=== PATIENT | male | born 1970 | race Caucasian/White ===

== ENCOUNTER 2016-10-22 16:04 | Inpatient (IN) | payer MEDICAID ==
[2016-10-24] MEDS ORDERED: ALBUTEROL 3 ML DEYVIAL IH PRN (16:04)
[2016-10-24] MEDS ORDERED: guaiFENesin 200 MG/10 ML UDCUP PO PRN (16:13)
--- NOTE | 2016-10-24 16:50 | PDOREHIP ---
Admission [facility] - Admission - 3 Day Assessment Period Admission Date/Day 1: 10/24/16 Day 2: 10/25/16 Day 3: 10/26/16 - Active Diagnoses Comorbidities and Co-existing Conditions at Admission: 73131. None of the Above - Skin Conditions Unhealed Pressure Ulcer (1 or more/Stage 1 or >)-Admission: 0. No
[2016-10-24] MEDS: oxyCODONE IR 5 MG TAB PO PRN ×3 (17:13→23:22)
[2016-10-24] MEDS: GABAPENTIN 300 MG CAP PO SCH ×2 (17:14→20:09)
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
[2016-10-24] MEDS: ACETAMINOPHEN 500 MG TAB PO SCH (20:09)
[2016-10-24] MEDS: QUEtiapine FUMARATE 50 MG TAB PO SCH (20:09)
[2016-10-24] MEDS: morphINE SR 15 MG TAB PO SCH (20:10)
[2016-10-24] MEDS: DOXAZOSIN MESYLATE 1 MG TAB PO SCH (20:10)
[2016-10-24] MEDS: POLYETHYLENE GLYCOL 3350 17 GM PKT PO SCH (20:24)
[2016-10-24] MEDS ORDERED: morphINE SR 30 MG TAB PO SCH (21:00)
[2016-10-25] MEDS: oxyCODONE IR 5 MG TAB PO PRN ×5 (04:11→21:09)
[2016-10-25] MEDS: ACETAMINOPHEN 500 MG TAB PO SCH ×3 (05:16→21:03)
[2016-10-25] MEDS: LORazepam 1 MG TAB PO PRN ×2 (08:10→20:00)
[2016-10-25] MEDS: POLYETHYLENE GLYCOL 3350 17 GM PKT PO SCH ×2 (08:14→20:00)
[2016-10-25] MEDS: GABAPENTIN 300 MG CAP PO SCH ×3 (08:14→20:00)
[2016-10-25] MEDS: morphINE SR 15 MG TAB PO SCH ×3 (08:15→21:03)
[2016-10-25] MEDS: ENOXAPARIN 40 MG/0.4 ML SYR SC SCH (08:16)
[2016-10-25] MEDS: SENNOSIDES 1 TAB PO PRN (08:16)
[2016-10-25] MEDS: LIDOCAINE 5% 1 EA PATCH TD SCH (08:17)
[2016-10-25 08:20] LABS: % IMMATURE GRANULYOCYTES 0.9 % (0.0-1.1); ABSOLUTE IMMATURE GRANULOCYTES 0.08 10^3/uL (0.00-0.10); ADD DIFF? NO; ADD MORPH? NO; ADD SCAN? YES; FRAGMENT RBC FLAG 0 (0-99); HEMATOCRIT 35.6 % (40.0-51.0); HEMOGLOBIN 11.3 g/dL (13.7-17.5); LEFT SHIFT FLG 10 (0-99); LIPEMIA HEMOLYSIS FLAG 80 (0-99); MEAN CELL HEMOGLOBIN 29.3 pg (27.9-34.1); MEAN CELL HEMOGLOBIN CONCENTR. 31.7 g/dL (32.4-36.7); MEAN CELL VOLUME 92.2 fL (81.5-99.8); MEAN PLATELET VOLUME 8.6 fL (8.7-11.7); PLATELET CLUMPS FLAG 10 (0-99); RED BLOOD CELL COUNT 3.86 10^6/uL (4.40-6.38); RED CELL DISTRIBUTION WIDTH 13.8 % (11.5-15.2)
[2016-10-25 08:23] LABS: ATYPICAL LYMPHOCYTE FLAG 110 (0-99)
[2016-10-25 08:29] LABS: ALANINE AMINOTRANSFERASE 45 IU/L (21-72); ALBUMIN 3.6 g/dL (3.5-5.0); ALKALINE PHOSPHATASE 348 IU/L (38-126); ANION GAP 12 mEq/L (8-16); ASPARTATE AMINOTRANSFERASE 30 IU/L (17-59); BILIRUBIN,TOTAL 0.6 mg/dL (0.1-1.4); CALCIUM 9.8 mg/dL (8.5-10.4); CARBON DIOXIDE 31 mEq/l (22-31); CHLORIDE 99 mEq/L (97-110); CREATININE 0.7 mg/dL (0.7-1.3); GLOMERULAR FILTRATION RATE > 60; GLUCOSE 108 mg/dL (70-100); POTASSIUM 4.8 mEq/L (3.5-5.2); SODIUM 142 mEq/L (134-144); TOTAL PROTEIN 7.6 g/dL (6.3-8.2)
[2016-10-25 08:37] LABS: PLATELET COUNT 1063 10^3/uL (150-400)
[2016-10-25] MEDS ORDERED: VENLAFAXINE XR 75 MG CAP PO SCH (09:00)
[2016-10-25 09:43] LABS: SCAN POSITIVE
[2016-10-25 09:55] LABS: PLATELET ESTIMATE INCREASED (ADEQ)
[2016-10-25 09:56] LABS: GIANT PLATELETS PRESENT; HYPOCHROMIA 1+; POLYCHROMASIA 1+
[2016-10-25] MEDS: VENLAFAXINE XR 37.5 MG CAP PO SCH (10:21)
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
--- NOTE | 2016-10-25 12:34 | SOAPPROG ---
SOAP Progress Note Assessment/Plan: Assessment: * Debility status post multiple trauma, nonweightbearing on the left upper extremity and touchdown weightbearing on the right lower extremity. Physical and Occupational Therapy to optimize his mobility and performance of activities of daily living. * Traumatic brain injury with possible cognitive sequelae, to be assessed and treated per Speech and Language Pathology. Low stimulation environment; monitor hours of sleep. * Pain from multiple orthopedic injuries. Started sustained-release morphine at 30 mg p.o. b.i.d. on 10/24/16 and continued oxycodone 10-15 mg q.4 hours p.r.n. Increase morphine SR to 15 mg TID as he's using near the max dosing of oxycodone and continues to have pain. Continue gabapentin. Continue the lidocaine patch until he is assessed to have adequate pain control. He expressed some concern about addiction, and he was reassured that as long as the opiates are used to manage pain it is unlikely that he will become addicted , though his prior history of substance abuse increases his risk. * Status post flail chest, pneumonia, and pulmonary edema. Incentive spirometry 10 breaths every hour. * Status post splenectomy. Per hospital discharge summary, he received appropriate vaccinations. * Thrombocytosis: likely due to splenectomy. * Left foot pain, both somatic and neuropathic component. Continue gabapentin as ordered. XR w/out fracture. * History of anxiety. Continue venlafaxine and quetiapine as ordered out of the hospital. * Anemia, post traumatic and postsurgical. Improving on CBC 10/25/16. * Constipation on opiates. Responding to bowel program. * He is a high risk for deep venous thrombosis. Continue enoxaparin as ordered out of the hospital. * Questionable history of urinary retention. He had some vagueness in terms of describing this. Will order bladder scans on a p.r.n. basis. Continue doxazosin. If he has urinary retention, it may be due to opiates plus methocarbamol and the symptom may resolve when opiates can be tapered. 10/25/16 13:45 Subjective: Slept OK though had vivid dreams and some confusion re dreams vs. wakeful events overnight. Hurts to breathe deep. No cough/dyspnea, f/c. Objective: Vital Signs Temp Pulse Resp BP Pulse Ox 36.6 C 97 18 104/73 94 10/25/16 06:17 10/25/16 06:17 10/25/16 06:17 10/25/16 06:17 10/25/16 06:17 Laboratory Results 10/25/16 05:15 10/25/16 05:15 10/24/16 10/25/16 10/26/16 05:59 05:59 05:59 Intake Total 550 Output Total 1425 Balance -875 Physical Exam - Physical Exam General Appearance: WD/WN, alert, no apparent distress Respiratory: normal breath sounds, decreased breath sounds, No crackles, No rhonchi, No wheezing Cardiac/Chest: regular rate, rhythm, No edema Skin: normal color, warm/dry Neuro/Psych: no motor/sensory deficits, alert, normal mood/affect, oriented x 3 ICD10 Worksheet Patient Problems: Problems Problem Status Diagnosed Multiple trauma Acute TBI (traumatic brain injury) Acute
[2016-10-25] MEDS: QUEtiapine FUMARATE 50 MG TAB PO SCH (20:00)
[2016-10-25] MEDS: DOXAZOSIN MESYLATE 1 MG TAB PO SCH (20:02)
[2016-10-26] MEDS: oxyCODONE IR 5 MG TAB PO PRN ×5 (02:27→23:34)
[2016-10-26] MEDS: ACETAMINOPHEN 500 MG TAB PO SCH ×3 (05:01→21:20)
[2016-10-26] MEDS: LIDOCAINE 5% 1 EA PATCH TD SCH (08:53)
[2016-10-26] MEDS: morphINE SR 15 MG TAB PO SCH ×3 (08:55→21:20)
[2016-10-26] MEDS: VENLAFAXINE XR 37.5 MG CAP PO SCH (08:56)
[2016-10-26] MEDS: LORazepam 1 MG TAB PO PRN ×2 (09:01→21:30)
[2016-10-26] MEDS: POLYETHYLENE GLYCOL 3350 17 GM PKT PO SCH ×2 (09:02→21:21)
[2016-10-26] MEDS: ENOXAPARIN 40 MG/0.4 ML SYR SC SCH (09:03)
[2016-10-26] MEDS: GABAPENTIN 300 MG CAP PO SCH ×3 (09:06→21:20)
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
[2016-10-26] MEDS: PANTOPRAZOLE SODIUM 40 MG TAB PO SCH (11:28)
[2016-10-26] MEDS ORDERED: IBUPROFEN 600 MG TAB PO SCH (12:00)
[2016-10-26] MEDS: IBUPROFEN 200 MG TAB PO SCH ×2 (16:39→21:21)
[2016-10-26] MEDS: QUEtiapine FUMARATE 50 MG TAB PO SCH (21:20)
[2016-10-26] MEDS: DOXAZOSIN MESYLATE 1 MG TAB PO SCH (21:21)
[2016-10-27] MEDS: oxyCODONE IR 5 MG TAB PO PRN ×3 (05:43→23:48)
[2016-10-27] MEDS: IBUPROFEN 200 MG TAB PO SCH ×5 (05:44→20:59)
[2016-10-27] MEDS: ACETAMINOPHEN 500 MG TAB PO SCH ×3 (05:45→21:03)
[2016-10-27] MEDS: ENOXAPARIN 40 MG/0.4 ML SYR SC SCH (08:06)
[2016-10-27] MEDS: GABAPENTIN 300 MG CAP PO SCH ×3 (08:07→21:14)
[2016-10-27] MEDS: morphINE SR 15 MG TAB PO SCH ×3 (08:08→21:03)
[2016-10-27] MEDS: LIDOCAINE 5% 1 EA PATCH TD SCH (08:08)
[2016-10-27] MEDS: POLYETHYLENE GLYCOL 3350 17 GM PKT PO SCH ×2 (08:09→21:14)
[2016-10-27] MEDS: VENLAFAXINE XR 37.5 MG CAP PO SCH (08:09)
[2016-10-27] MEDS: PANTOPRAZOLE SODIUM 40 MG TAB PO SCH (08:09)
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
[2016-10-27] MEDS: QUEtiapine FUMARATE 50 MG TAB PO SCH (20:58)
[2016-10-27] MEDS: LORazepam 1 MG TAB PO PRN (21:14)
[2016-10-27] MEDS: DOXAZOSIN MESYLATE 1 MG TAB PO SCH (21:22)
[2016-10-28] MEDS: ACETAMINOPHEN 500 MG TAB PO SCH ×3 (04:58→21:59)
[2016-10-28] MEDS: oxyCODONE IR 5 MG TAB PO PRN ×3 (05:05→17:20)
[2016-10-28] MEDS: morphINE SR 15 MG TAB PO SCH ×3 (05:09→21:59)
[2016-10-28] MEDS: LORazepam 1 MG TAB PO PRN (06:41)
[2016-10-28] MEDS: GABAPENTIN 300 MG CAP PO SCH ×3 (08:04→20:14)
[2016-10-28] MEDS: ENOXAPARIN 40 MG/0.4 ML SYR SC SCH (08:04)
[2016-10-28] MEDS: LIDOCAINE 5% 1 EA PATCH TD SCH (08:05)
[2016-10-28] MEDS: VENLAFAXINE XR 37.5 MG CAP PO SCH (08:07)
[2016-10-28] MEDS: POLYETHYLENE GLYCOL 3350 17 GM PKT PO SCH ×2 (08:07→20:14)
[2016-10-28] MEDS: SENNOSIDES 1 TAB PO PRN (08:07)
[2016-10-28] MEDS: PANTOPRAZOLE SODIUM 40 MG TAB PO SCH (08:07)
--- NOTE | 2016-10-28 12:00 | SOAPPROG ---
SOAP Progress Note Assessment/Plan: Assessment: * Debility status post multiple trauma, nonweightbearing on the left upper extremity and touchdown weightbearing on the right lower extremity. Initial FIM 77 on 10/26/16. Not complying with TTWB restrictions adequately to work on ambulation. Continue Physical and Occupational Therapy to optimize his mobility and performance of activities of daily living. TTWB clarified with Dr. Leija, Orthopedics: may not use RLE to self-propel wheelchair. 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 Decreased attn. exec fn, working memory, organization. Continue Speech and Language Pathology. Low stimulation environment; monitor hours of sleep. * Pain from multiple orthopedic injuries. Started sustained-release morphine at 30 mg p.o. b.i.d. on 10/24/16 and continued oxycodone 10-15 mg q.4 hours p.r.n. Increase morphine SR to 30 mg Q 8 hr 10/25/16 as he's using near the max dosing of oxycodone and continues to have pain. Add ibuprofen 600 mg Q 6 hr starting 10/26/16, and pantoprazole for GI protection. Continue gabapentin. Continue the lidocaine patch until he is assessed to have adequate pain control. He expressed some concern about addiction, and he was reassured that as long as the opiates are used to manage pain it is unlikely that he will become addicted, though his prior history of substance abuse increases his risk. Has reduced use of oxyIR from 50 - 60 mg/day to 35 mg/day on 10/27/16. * Status post flail chest, pneumonia, and pulmonary edema. Incentive spirometry 10 breaths every hour. * Status post splenectomy. Per hospital discharge summary, he received appropriate vaccinations. * Thrombocytosis: likely due to splenectomy. * Left foot pain, both somatic and neuropathic component. Continue gabapentin as ordered. XR w/out fracture. * Pedal edema. Due to ibuprofen and gabapentin? No renal or hepatic insufficiency on labs 10/25/16. No S/Sx DVT or PE. Continue to monitor. * History of anxiety. Continue venlafaxine and quetiapine as ordered out of the hospital. * H/O substance abuse: caution re opiate dosing. * Anemia, post traumatic and postsurgical. Improving on CBC 10/25/16. * Constipation on opiates. Responding to bowel program. * He is a high risk for deep venous thrombosis. Continue enoxaparin as ordered out of the hospital. * Questionable history of urinary retention. He had some vagueness in terms of describing this. Will order bladder scans on a p.r.n. basis. Continue doxazosin. If he has urinary retention, it may be due to opiates plus methocarbamol and the symptom may resolve when opiates can be tapered. Progress is limited by weightbearing; may need to discharge at wheelchair level until weightbearing can be advanced. If SNF destination, tentative discharge date of 11/02/16. If home, 11/09/16; would need to be able to negotiate stairs. 10/28/16 12:00 Subjective: Reports a 15 minute episode of R triceps pain, which has resolved. Says he awoke at night with pain and asks about med scheduling. C/O dry flakey skin on hands and feet. Notices puffiness to feet L > R. Objective: Vital Signs Temp Pulse Resp BP Pulse Ox 36.8 C 90 18 109/77 92 10/28/16 07:02 10/28/16 07:02 10/28/16 07:02 10/28/16 07:02 10/28/16 07:02 Laboratory Results 10/25/16 05:15 10/25/16 05:15 10/27/16 10/28/16 10/29/16 05:59 05:59 05:59 Intake Total 3620 3000 780 Output Total 1900 Balance 3620 1100 780 Physical Exam - Physical Exam General Appearance: WD/WN, alert, no apparent distress Respiratory: No respiratory distress, No accessory muscle use Skin: normal color, warm/dry, other (dry flakey skin on backs of hands and on feet.) Extremities: pedal edema (1+ on L dorsum of foot) Neuro/Psych: no motor/sensory deficits, alert, normal mood/affect, oriented x 3 ICD10 Worksheet Patient Problems: Problems Problem Status Diagnosed Multiple trauma Acute TBI (traumatic brain injury) Acute
[2016-10-28] MEDS: IBUPROFEN 200 MG TAB PO SCH ×3 (12:29→20:11)
[2016-10-28] MEDS: AQUAPHOR OINTMENT 3.5 OZ JAR TP SCH ×2 (14:07→20:21)
[2016-10-28] MEDS: DOXAZOSIN MESYLATE 1 MG TAB PO SCH (20:14)
[2016-10-28] MEDS: QUEtiapine FUMARATE 50 MG TAB PO SCH (20:14)
[2016-10-29] MEDS: IBUPROFEN 200 MG TAB PO SCH ×4 (06:10→20:11)
[2016-10-29] MEDS: ACETAMINOPHEN 500 MG TAB PO SCH ×3 (06:10→21:05)
[2016-10-29] MEDS: morphINE SR 15 MG TAB PO SCH ×3 (06:11→21:05)
[2016-10-29] MEDS: POLYETHYLENE GLYCOL 3350 17 GM PKT PO SCH ×2 (07:51→20:12)
[2016-10-29] MEDS: oxyCODONE IR 5 MG TAB PO PRN ×3 (07:52→17:50)
[2016-10-29] MEDS: GABAPENTIN 300 MG CAP PO SCH ×3 (07:53→20:11)
[2016-10-29] MEDS: PANTOPRAZOLE SODIUM 40 MG TAB PO SCH (07:54)
[2016-10-29] MEDS: VENLAFAXINE XR 37.5 MG CAP PO SCH (07:54)
[2016-10-29] MEDS: ENOXAPARIN 40 MG/0.4 ML SYR SC SCH (07:54)
[2016-10-29] MEDS: LIDOCAINE 5% 1 EA PATCH TD SCH (07:56)
--- NOTE | 2016-10-29 10:14 | SOAPPROG ---
SOAP Progress Note Assessment/Plan: Assessment: * Debility status post multiple trauma, nonweightbearing on the left upper extremity and touchdown weightbearing on the right lower extremity. Initial FIM 77 on 10/26/16. Not complying with TTWB restrictions adequately to work on ambulation. Continue Physical and Occupational Therapy to optimize his mobility and performance of activities of daily living. TTWB clarified with Dr. Leija, Orthopedics: may not use RLE to self-propel wheelchair. 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 Decreased attn. exec fn, working memory, organization. Continue Speech and Language Pathology. Low stimulation environment; monitor hours of sleep. * Pain from multiple orthopedic injuries. Started sustained-release morphine at 30 mg p.o. b.i.d. on 10/24/16 and continued oxycodone 10-15 mg q.4 hours p.r.n. Increase morphine SR to 30 mg Q 8 hr 10/25/16. Adedd ibuprofen 600 mg Q 6 hr starting 10/26/16, and pantoprazole for GI protection. Continue gabapentin. Continue the lidocaine patch until he is assessed to have adequate pain control. He expressed some concern about addiction, and he was reassured that as long as the opiates are used to manage pain it is unlikely that he will become addicted, though his prior history of substance abuse increases his risk. Has reduced use of oxyIR from 50 - 60 mg/day to 35 mg/day on 10/27/16 & . * Status post flail chest, pneumonia, and pulmonary edema. Incentive spirometry 10 breaths every hour. * Status post splenectomy. Per hospital discharge summary, he received appropriate vaccinations. * Thrombocytosis: likely due to splenectomy. * Left foot pain, both somatic and neuropathic component. Continue gabapentin as ordered. XR w/out fracture. * Pedal edema. Due to ibuprofen and gabapentin? No renal or hepatic insufficiency on labs 10/25/16. No S/Sx DVT or PE. Continue to monitor. * History of anxiety. Continue venlafaxine and quetiapine as ordered out of the hospital. * H/O substance abuse: caution re opiate dosing. * Anemia, post traumatic and postsurgical. Improving on CBC 10/25/16. * Constipation on opiates. Responding to bowel program. * He is a high risk for deep venous thrombosis. Continue enoxaparin as ordered out of the hospital. * Questionable history of urinary retention. He had some vagueness in terms of describing this. Will order bladder scans on a p.r.n. basis. D/C doxazosin . If he has urinary retention, it may be due to opiates plus methocarbamol and the symptom may resolve when opiates can be tapered. Progress is limited by weightbearing; may need to discharge at wheelchair level until weightbearing can be advanced. If SNF destination, tentative discharge date of 11/02/16. If home, 11/09/16; would need to be able to negotiate stairs. 10/29/16 10:15 Subjective: Asks re reason he's on doxazosin. Also wants to know about age-appropriate health screening. Slept through the night; awoke with urinary incontinence and called nurse for assistance to commode. Objective: Vital Signs Temp Pulse Resp BP Pulse Ox 36.6 C 83 16 104/71 91 L 10/29/16 07:57 10/29/16 07:57 10/29/16 07:57 10/29/16 07:57 10/29/16 07:57 Laboratory Results 10/25/16 05:15 10/25/16 05:15 10/28/16 10/29/16 10/30/16 05:59 05:59 05:59 Intake Total 3000 1580 Output Total 1900 Balance 1100 1580 Physical Exam - Physical Exam General Appearance: WD/WN, alert, no apparent distress Respiratory: No respiratory distress, No accessory muscle use Skin: normal color, warm/dry Extremities: pedal edema (trace - 1+ B dorsal feet) Neuro/Psych: no motor/sensory deficits, alert, normal mood/affect, oriented x 3 ICD10 Worksheet Patient Problems: Problems Problem Status Diagnosed Multiple trauma Acute TBI (traumatic brain injury) Acute
[2016-10-29] MEDS: AQUAPHOR OINTMENT 3.5 OZ JAR TP SCH ×2 (13:13→21:20)
[2016-10-29] MEDS: QUEtiapine FUMARATE 50 MG TAB PO SCH (20:11)
[2016-10-29] MEDS: LORazepam 1 MG TAB PO PRN (21:18)
[2016-10-30] MEDS: IBUPROFEN 200 MG TAB PO SCH ×4 (05:28→20:42)
[2016-10-30] MEDS: morphINE SR 15 MG TAB PO SCH ×3 (05:28→21:24)
[2016-10-30] MEDS: ACETAMINOPHEN 500 MG TAB PO SCH ×3 (05:29→21:24)
[2016-10-30] MEDS: ENOXAPARIN 40 MG/0.4 ML SYR SC SCH (08:34)
[2016-10-30] MEDS: oxyCODONE IR 5 MG TAB PO PRN ×3 (08:34→21:25)
[2016-10-30] MEDS: GABAPENTIN 300 MG CAP PO SCH ×3 (08:35→20:41)
[2016-10-30] MEDS: PANTOPRAZOLE SODIUM 40 MG TAB PO SCH (08:35)
[2016-10-30] MEDS: POLYETHYLENE GLYCOL 3350 17 GM PKT PO SCH ×2 (08:35→20:41)
[2016-10-30] MEDS: LIDOCAINE 5% 1 EA PATCH TD SCH (08:35)
[2016-10-30] MEDS: VENLAFAXINE XR 37.5 MG CAP PO SCH (08:35)
[2016-10-30] MEDS: AQUAPHOR OINTMENT 3.5 OZ JAR TP SCH ×2 (08:36→21:25)
--- NOTE | 2016-10-30 14:13 | SOAPPROG ---
SOAP Progress Note Assessment/Plan: Assessment: * Debility status post multiple trauma, nonweightbearing on the left upper extremity and touchdown weightbearing on the right lower extremity. Initial FIM 77 on 10/26/16. Not complying with TTWB restrictions adequately to work on ambulation. Continue Physical and Occupational Therapy to optimize his mobility and performance of activities of daily living. TTWB clarified with Dr. Leija, Orthopedics: may not use RLE to self-propel wheelchair. 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 Decreased attn. exec fn, working memory, organization. Continue Speech and Language Pathology. Low stimulation environment; monitor hours of sleep. * Pain from multiple orthopedic injuries. Started sustained-release morphine at 30 mg p.o. b.i.d. on 10/24/16 and continued oxycodone 10-15 mg q.4 hours p.r.n. Increase morphine SR to 30 mg Q 8 hr 10/25/16. Adedd ibuprofen 600 mg Q 6 hr starting 10/26/16, and pantoprazole for GI protection. Continue gabapentin. Continue the lidocaine patch until he is assessed to have adequate pain control. He expressed some concern about addiction, and he was reassured that as long as the opiates are used to manage pain it is unlikely that he will become addicted, though his prior history of substance abuse increases his risk. Has reduced use of oxyIR from 50 - 60 mg/day to 35 mg/day on 10/27/16 & . * Status post flail chest, pneumonia, and pulmonary edema. Incentive spirometry 10 breaths every hour. * Status post splenectomy. Per hospital discharge summary, he received appropriate vaccinations. * Thrombocytosis: likely due to splenectomy. * Left foot pain, both somatic and neuropathic component. Continue gabapentin as ordered. XR w/out fracture. * Pedal edema. Due to ibuprofen and gabapentin? No renal or hepatic insufficiency on labs 10/25/16. No S/Sx DVT or PE. Continue to monitor. * History of anxiety. Continue venlafaxine and quetiapine as ordered out of the hospital. * H/O substance abuse: caution re opiate dosing. * Anemia, post traumatic and postsurgical. Improving on CBC 10/25/16. * Constipation on opiates. Responding to bowel program. * He is a high risk for deep venous thrombosis. Continue enoxaparin as ordered out of the hospital. * Questionable history of urinary retention. He had some vagueness in terms of describing this. Will order bladder scans on a p.r.n. basis. D/C doxazosin . If he has urinary retention, it may be due to opiates plus methocarbamol and the symptom may resolve when opiates can be tapered. Progress is limited by weightbearing; may need to discharge at wheelchair level until weightbearing can be advanced. If SNF destination, tentative discharge date of 11/02/16. If home, 11/09/16; would need to be able to negotiate stairs. 10/30/16 14:11 Subjective: Episode of urinary incontinence again overnight. O/W slept well. Pain now limited to L shoulder and rib cage. Disnihibited behavior noted by nirse. Objective: Vital Signs Temp Pulse Resp BP Pulse Ox 36.4 C 79 16 90/55 L 99 10/30/16 08:00 10/30/16 08:00 10/30/16 08:00 10/30/16 08:00 10/30/16 08:00 Laboratory Results 10/25/16 05:15 10/25/16 05:15 10/29/16 10/30/16 10/31/16 05:59 05:59 05:59 Intake Total 1580 1750 600 Balance 1580 1750 600 Physical Exam - Physical Exam General Appearance: WD/WN, alert, no apparent distress Respiratory: normal breath sounds, wheezing, No crackles, No rhonchi Cardiac/Chest: regular rate, rhythm, edema (trace - 1+ B feet) Skin: normal color, warm/dry Neuro/Psych: no motor/sensory deficits, alert, normal mood/affect, oriented x 3 , other (Perseverative) ICD10 Worksheet Patient Problems: Problems Problem Status Diagnosed Multiple trauma Acute TBI (traumatic brain injury) Acute
[2016-10-30] MEDS: QUEtiapine FUMARATE 50 MG TAB PO SCH (20:43)
[2016-10-31] MEDS: oxyCODONE IR 5 MG TAB PO PRN ×6 (03:15→21:30)
[2016-10-31] MEDS: IBUPROFEN 200 MG TAB PO SCH ×4 (05:57→20:01)
[2016-10-31] MEDS: ACETAMINOPHEN 500 MG TAB PO SCH ×3 (05:57→21:30)
[2016-10-31] MEDS: morphINE SR 15 MG TAB PO SCH ×3 (05:57→21:30)
[2016-10-31] MEDS: ENOXAPARIN 40 MG/0.4 ML SYR SC SCH (07:28)
[2016-10-31] MEDS: AQUAPHOR OINTMENT 3.5 OZ JAR TP SCH ×2 (07:29→20:01)
[2016-10-31] MEDS: PANTOPRAZOLE SODIUM 40 MG TAB PO SCH (07:29)
[2016-10-31] MEDS: LIDOCAINE 5% 1 EA PATCH TD SCH (07:29)
[2016-10-31] MEDS: VENLAFAXINE XR 37.5 MG CAP PO SCH (07:29)
[2016-10-31] MEDS: POLYETHYLENE GLYCOL 3350 17 GM PKT PO SCH ×2 (07:29→20:02)
[2016-10-31] MEDS: GABAPENTIN 300 MG CAP PO SCH (07:29)
--- NOTE | 2016-10-31 12:33 | SOAPPROG ---
SOAP Progress Note Assessment/Plan: Assessment: * Debility status post multiple trauma, nonweightbearing on the left upper extremity and touchdown weightbearing on the right lower extremity. Initial FIM 84 on 10/26/16; increase to 91 as of 10/31/16. Not complying with TTWB restrictions adequately to work on ambulation. Continue Physical and Occupational Therapy to optimize his mobility and performance of activities of daily living. TTWB clarified with Dr. Leija, Orthopedics: may not use RLE to self-propel wheelchair. 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 Decreased attn. exec fn, working memory, organization. Continue Speech and Language Pathology. Low stimulation environment; monitor hours of sleep. * Pain from multiple orthopedic injuries. Started sustained-release morphine at 30 mg p.o. b.i.d. on 10/24/16 and continued oxycodone 10-15 mg q.4 hours p.r.n. Increase morphine SR to 30 mg Q 8 hr 10/25/16. Added ibuprofen 600 mg Q 6 hr starting 10/26/16, and pantoprazole for GI protection. Taper gabapentin starting 10/31/16 as neuropathic symptoms of tingling in toes are not bothersome. Continue the lidocaine patch until he is assessed to have adequate pain control. He expressed some concern about addiction, and he was reassured that as long as the opiates are used to manage pain it is unlikely that he will become addicted, though his prior history of substance abuse increases his risk. Has reduced use of oxyIR from 50 - 60 mg/day to 35 mg/day on 10/27/16 & ; 40 mg on 10/30/16. * Status post flail chest, pneumonia, and pulmonary edema. Incentive spirometry 10 breaths every hour. * Status post splenectomy. Per hospital discharge summary, he received appropriate vaccinations. * Thrombocytosis: likely due to splenectomy. * Left foot pain, both somatic and neuropathic component. Continue gabapentin as ordered. XR w/out fracture. * Pedal edema. Due to ibuprofen and gabapentin? No renal or hepatic insufficiency on labs 10/25/16. No S/Sx DVT or PE. Taper gabapentin as above. Continue to monitor. * History of anxiety. Continue venlafaxine and quetiapine as ordered out of the hospital. * H/O substance abuse: caution re opiate dosing. * Anemia, post traumatic and postsurgical. Improving on CBC 10/25/16. * Constipation on opiates. Responding to bowel program. * He is a high risk for deep venous thrombosis. Continue enoxaparin as ordered out of the hospital. * Questionable history of urinary retention. He had some vagueness in terms of describing this. Will order bladder scans on a p.r.n. basis. D/C doxazosin . If he has urinary retention, it may be due to opiates plus methocarbamol and the symptom may resolve when opiates can be tapered. Attended staffing, 15 min. D/w case mgmt, nursing, PT, OT, [employer]ATOR. Plan for SNF discharge 11/02/16; appropriate until weightbearing can be advanced. 10/31/16 12:28 Subjective: C/O still in pain. Asks questions re weightbearing status and how long restricted. Denies urinary incontinence overnight. Was up twice and slept less than a full night. Objective: Vital Signs Temp Pulse Resp BP Pulse Ox 36.5 C 80 16 99/67 L 92 10/31/16 05:37 10/31/16 05:37 10/31/16 05:37 10/31/16 05:37 10/31/16 05:37 Laboratory Results 10/25/16 05:15 10/25/16 05:15 10/30/16 10/31/16 11/01/16 05:59 05:59 05:59 Intake Total 1750 1320 236 Output Total 600 Balance 1750 720 236 - Time Spent With Patient Time Spent With Patient: Greater than 35 minutes floor time today, including more than 50% of time in coordination of care during staffing, and counseling patient. Physical Exam - Physical Exam General Appearance: WD/WN, alert, no apparent distress Respiratory: normal breath sounds, No crackles, No rhonchi, No wheezing Skin: normal color, warm/dry Neuro/Psych: no motor/sensory deficits, alert, normal mood/affect, oriented x 3 , other (Repetitive and perseverative.) ICD10 Worksheet Patient Problems: Problems Problem Status Diagnosed Multiple trauma Acute TBI (traumatic brain injury) Acute
[2016-10-31] MEDS ORDERED: GABAPENTIN 300 MG CAP PO SCH ×2 (12:34)
[2016-10-31] MEDS: GABAPENTIN 100 MG CAP PO SCH (18:21)
[2016-10-31] MEDS: QUEtiapine FUMARATE 50 MG TAB PO SCH (20:01)
[2016-11-01] MEDS: oxyCODONE IR 5 MG TAB PO PRN ×5 (02:33→17:48)
[2016-11-01] MEDS: ACETAMINOPHEN 500 MG TAB PO SCH ×3 (05:45→21:41)
[2016-11-01] MEDS: morphINE SR 15 MG TAB PO SCH ×3 (05:45→21:41)
[2016-11-01] MEDS: IBUPROFEN 200 MG TAB PO SCH (05:45)
[2016-11-01] MEDS: LIDOCAINE 5% 1 EA PATCH TD SCH (08:52)
[2016-11-01] MEDS: GABAPENTIN 100 MG CAP PO SCH (08:55)
[2016-11-01] MEDS: AQUAPHOR OINTMENT 3.5 OZ JAR TP SCH ×2 (08:56→22:18)
[2016-11-01] MEDS: ENOXAPARIN 40 MG/0.4 ML SYR SC SCH (08:56)
[2016-11-01] MEDS: VENLAFAXINE XR 37.5 MG CAP PO SCH (08:57)
[2016-11-01] MEDS: PANTOPRAZOLE SODIUM 40 MG TAB PO SCH (08:57)
[2016-11-01] MEDS: POLYETHYLENE GLYCOL 3350 17 GM PKT PO SCH ×2 (08:57→20:04)
[2016-11-01] MEDS: SENNOSIDES 1 TAB PO PRN (08:57)
--- NOTE | 2016-11-01 11:26 | SOAPPROG ---
SOAP Progress Note Assessment/Plan: Assessment: * Debility status post multiple trauma, nonweightbearing on the left upper extremity and touchdown weightbearing on the right lower extremity. Initial FIM 84 on 10/26/16; increase to 91 as of 10/31/16. Not complying with TTWB restrictions adequately to work on ambulation. Continue Physical and Occupational Therapy to optimize his mobility and performance of activities of daily living. TTWB clarified with Dr. Leija, Orthopedics: may not use RLE to self-propel wheelchair. 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 Decreased attn. exec fn, working memory, organization. Continue Speech and Language Pathology. Low stimulation environment; monitor hours of sleep. * Pain from multiple orthopedic injuries. Started sustained-release morphine at 30 mg p.o. b.i.d. on 10/24/16 and continued oxycodone 10-15 mg q.4 hours p.r.n. Increased morphine SR to 30 mg Q 8 hr 10/25/16. Added ibuprofen 600 mg Q 6 hr starting 10/26/16, and pantoprazole for GI protection; change to celecoxib 11/01/16 for longer duration of action; will also d/c pantoprazole. Taper gabapentin starting 10/31/16 as neuropathic symptoms of tingling in toes are not bothersome; D/C 11/01/16. Continue the lidocaine patch until he is assessed to have adequate pain control. He expressed some concern about addiction, and he was reassured that as long as the opiates are used to manage pain it is unlikely that he will become addicted, though his prior history of substance abuse increases his risk. * Status post flail chest, pneumonia, and pulmonary edema. Incentive spirometry 10 breaths every hour. * Status post splenectomy. Per hospital discharge summary, he received appropriate vaccinations. * Thrombocytosis: likely due to splenectomy. * Left foot pain, XR w/out fracture, seems resolved. * Pedal edema. Due to ibuprofen and gabapentin? No renal or hepatic insufficiency on labs 10/25/16. No S/Sx DVT or PE. Taper gabapentin as above and improving; d/c gabapentin 11/01/16. Continue to monitor. * History of anxiety. Continue venlafaxine and quetiapine as ordered out of the hospital. Psychiatry consult to clarify diagnosis (historically diagnosed schizoaffective and possibly bipolar; polysubstance abuse overlay). * H/O substance abuse: caution re opiate dosing. * Anemia, post traumatic and postsurgical. Improving on CBC 10/25/16. * Constipation on opiates. Responding to bowel program. * He is a high risk for deep venous thrombosis. Continue enoxaparin as ordered out of the hospital. * Questionable history of urinary retention. He had some vagueness in terms of describing this. Will order bladder scans on a p.r.n. basis. D/C doxazosin . If he has urinary retention, it may be due to opiates plus methocarbamol and the symptom may resolve when opiates can be tapered. Possible SNF discharge 11/02/16; appropriate until weightbearing can be advanced; may be delayed for [facility] and re availability of Medicaid bed. 11/01/16 11:20 Subjective: Reports that he awoke with pain during the night, primarily L ribs. Notes less swelling in feet. O/W w/out complaint; no f/c, cough/dyspnea. Objective: Vital Signs Temp Pulse Resp BP Pulse Ox 36.6 C 74 18 109/74 94 11/01/16 06:14 11/01/16 06:14 11/01/16 06:14 11/01/16 06:14 11/01/16 06:14 Laboratory Results 10/25/16 05:15 10/25/16 05:15 10/31/16 11/01/16 11/02/16 05:59 05:59 05:59 Intake Total 1320 686 Output Total 600 Balance 720 686 Physical Exam - Physical Exam General Appearance: WD/WN, alert, no apparent distress Respiratory: No respiratory distress, No accessory muscle use Skin: normal color, warm/dry Neuro/Psych: no motor/sensory deficits, alert, normal mood/affect, oriented x 3 ICD10 Worksheet Patient Problems: Problems Problem Status Diagnosed Multiple trauma Acute TBI (traumatic brain injury) Acute
[2016-11-01] MEDS: LORazepam 1 MG TAB PO PRN (18:03)
[2016-11-01] MEDS: QUEtiapine FUMARATE 50 MG TAB PO SCH (20:04)
[2016-11-02] MEDS: oxyCODONE IR 5 MG TAB PO PRN ×4 (03:54→18:29)
[2016-11-02] MEDS: ACETAMINOPHEN 500 MG TAB PO SCH ×3 (06:19→20:25)
[2016-11-02] MEDS: morphINE SR 15 MG TAB PO SCH ×3 (06:19→20:26)
[2016-11-02] MEDS: LIDOCAINE 5% 1 EA PATCH TD SCH (08:07)
[2016-11-02] MEDS: VENLAFAXINE XR 37.5 MG CAP PO SCH (08:07)
[2016-11-02] MEDS: POLYETHYLENE GLYCOL 3350 17 GM PKT PO SCH ×2 (08:07→20:25)
[2016-11-02] MEDS: ENOXAPARIN 40 MG/0.4 ML SYR SC SCH (08:07)
[2016-11-02] MEDS: AQUAPHOR OINTMENT 3.5 OZ JAR TP SCH ×2 (09:28→20:29)
--- NOTE | 2016-11-02 14:59 | SOAPPROG ---
SOAP Progress Note Assessment/Plan: Assessment: 45 yo M with TBI and mult psychiatric comorbidities NOS. On 11/02/2016 all medical issues are new to this provider. He is relatively stable, requesting images of his fractures which do not appear to be available in our system. He may be able to obtain them from [facility] where he received care acutely. He is medically stable today and the plan was reviewed in detail below and unchanged. * Debility status post multiple trauma, nonweightbearing on the left upper extremity and touchdown weightbearing on the right lower extremity. Initial FIM 84 on 10/26/16; increase to 91 as of 10/31/16. Not complying with TTWB restrictions adequately to work on ambulation. Continue Physical and Occupational Therapy to optimize his mobility and performance of activities of daily living. TTWB clarified with Dr. Leija, Orthopedics: may not use RLE to self-propel wheelchair. 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 Decreased attn. exec fn, working memory, organization. Continue Speech and Language Pathology. Low stimulation environment; monitor hours of sleep. * Pain from multiple orthopedic injuries. Started sustained-release morphine at 30 mg p.o. b.i.d. on 10/24/16 and continued oxycodone 10-15 mg q.4 hours p.r.n. Increased morphine SR to 30 mg Q 8 hr 10/25/16. Added ibuprofen 600 mg Q 6 hr starting 10/26/16, and pantoprazole for GI protection; change to celecoxib 11/01/16 for longer duration of action; will also d/c pantoprazole. Taper gabapentin starting 10/31/16 as neuropathic symptoms of tingling in toes are not bothersome; D/C 11/01/16. Continue the lidocaine patch until he is assessed to have adequate pain control. He expressed some concern about addiction, and he was reassured that as long as the opiates are used to manage pain it is unlikely that he will become addicted, though his prior history of substance abuse increases his risk. * Status post flail chest, pneumonia, and pulmonary edema. Incentive spirometry 10 breaths every hour. * Status post splenectomy. Per hospital discharge summary, he received appropriate vaccinations. * Thrombocytosis: likely due to splenectomy. * Left foot pain, XR w/out fracture, seems resolved. * Pedal edema. Due to ibuprofen and gabapentin? No renal or hepatic insufficiency on labs 10/25/16. No S/Sx DVT or PE. Taper gabapentin as above and improving; d/c gabapentin 11/01/16. Continue to monitor. * History of anxiety. Continue venlafaxine and quetiapine as ordered out of the hospital. Psychiatry consult to clarify diagnosis (historically diagnosed schizoaffective and possibly bipolar; polysubstance abuse overlay). * H/O substance abuse: caution re opiate dosing. * Anemia, post traumatic and postsurgical. Improving on CBC 10/25/16. * Constipation on opiates. Responding to bowel program. * He is a high risk for deep venous thrombosis. Continue enoxaparin as ordered out of the hospital. * Questionable history of urinary retention. He had some vagueness in terms of describing this. Will order bladder scans on a p.r.n. basis. D/C doxazosin . If he has urinary retention, it may be due to opiates plus methocarbamol and the symptom may resolve when opiates can be tapered. Possible SNF discharge 11/02/16; appropriate until weightbearing can be advanced; may be delayed for PASSAR and re availability of Medicaid bed. 11/02/16 14:54 Subjective: CC: concern over fractures No acute events overnight. He was inquiring about getting images of his fractures so that he can understand them better. Slept well, no new concerns. No new numbness, weakness, or tingling. His hip was bothering him somewhat this morning, which comes and goes and is similar to prior days. Family not available today to discuss, but plan is SNF as they are unable to provide adequate support. Objective: Vital Signs Temp Pulse Resp BP Pulse Ox 36.4 C 75 16 106/66 97 11/02/16 10:13 11/02/16 10:13 11/02/16 10:13 11/02/16 10:13 11/02/16 10:13 Laboratory Results 10/25/16 05:15 10/25/16 05:15 11/01/16 11/02/16 11/03/16 05:59 05:59 05:59 Intake Total 686 1440 690 Balance 686 1440 690 - Pending Discharge Pending Discharge Within 24 Hours: No Pending Discharge Within 48 Hours: No Physical Exam - Physical Exam General Appearance: alert, no apparent distress EENT: No scleral icterus (R), No scleral icterus (L) Respiratory: lungs clear, normal breath sounds, No respiratory distress, No accessory muscle use Cardiac/Chest: normal peripheral pulses, regular rate, rhythm, No edema Abdomen: non-tender, soft Skin: normal color, warm/dry Extremities: No pedal edema, No swelling Neuro/Psych: alert, normal mood/affect ICD10 Worksheet Patient Problems: Problems Problem Status Diagnosed Multiple trauma Acute TBI (traumatic brain injury) Acute
[2016-11-02] MEDS: QUEtiapine FUMARATE 50 MG TAB PO SCH (20:26)
[2016-11-03] MEDS: oxyCODONE IR 5 MG TAB PO PRN ×3 (00:15→12:25)
[2016-11-03] MEDS: ACETAMINOPHEN 500 MG TAB PO SCH ×3 (06:20→21:46)
[2016-11-03] MEDS: morphINE SR 15 MG TAB PO SCH ×3 (06:21→21:46)
[2016-11-03] MEDS: ENOXAPARIN 40 MG/0.4 ML SYR SC SCH (08:53)
[2016-11-03] MEDS: LIDOCAINE 5% 1 EA PATCH TD SCH ×2 (08:53→16:32)
[2016-11-03] MEDS: AQUAPHOR OINTMENT 3.5 OZ JAR TP SCH ×2 (08:54→20:12)
[2016-11-03] MEDS: POLYETHYLENE GLYCOL 3350 17 GM PKT PO SCH ×2 (08:55→20:11)
[2016-11-03] MEDS: VENLAFAXINE XR 37.5 MG CAP PO SCH (08:55)
--- NOTE | 2016-11-03 17:16 | SOAPPROG ---
SOAP Progress Note Assessment/Plan: 45 yo M with TBI/multitruama and mult psychiatric comorbidities NOS. * Debility status post multiple trauma, nonweightbearing on the left upper extremity and touchdown weightbearing on the right lower extremity. Initial FIM 84 on 10/26/16; increase to 91 as of 10/31/16. Not complying with TTWB restrictions adequately to work on ambulation. Continue Physical and Occupational Therapy to optimize his mobility and performance of activities of daily living. TT[facility] clarified with Dr. Leija, Orthopedics: may not use RLE to self-propel wheelchair. 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 Decreased attn. exec fn, working memory, organization. Continue Speech and Language Pathology. Low stimulation environment; monitor hours of sleep. * Pain from multiple orthopedic injuries. Started sustained-release morphine at 30 mg p.o. b.i.d. on 10/24/16 and continued oxycodone 10-15 mg q.4 hours p.r.n. Increased morphine SR to 30 mg Q 8 hr 10/25/16. Added ibuprofen 600 mg Q 6 hr starting 10/26/16, and pantoprazole for GI protection; change to celecoxib 11/01/16 for longer duration of action; will also d/c pantoprazole. Taper gabapentin starting 10/31/16 as neuropathic symptoms of tingling in toes are not bothersome; D/C 11/01/16. Ongoing pain complaints at least partly due to noncompliance with weight bearing restrictions, increase lido patch to 2q daily. Will also reinstitute gabapentin 300qhs as pain adjunct and for anxiety. * Status post flail chest, pneumonia, and pulmonary edema. Incentive spirometry 10 breaths every hour. * Status post splenectomy. Per hospital discharge summary, he received appropriate vaccinations. * Thrombocytosis: likely due to splenectomy. * Left foot pain, XR w/out fracture, seems resolved. * Pedal edema. Due to ibuprofen and gabapentin? No renal or hepatic insufficiency on labs 10/25/16. No S/Sx DVT or PE. Taper gabapentin as above and improving; d/c gabapentin 11/01/16. Continue to monitor. * History of anxiety. Continue venlafaxine and quetiapine as ordered out of the hospital. Psychiatry consult to clarify diagnosis (historically diagnosed schizoaffective and possibly bipolar; polysubstance abuse overlay). * H/O substance abuse: caution re opiate dosing. * Anemia, post traumatic and postsurgical. Improving on CBC 10/25/16. * Constipation on opiates. Responding to bowel program. * He is a high risk for deep venous thrombosis. Continue enoxaparin as ordered out of the hospital. * Questionable history of urinary retention. He had some vagueness in terms of describing this. Will order bladder scans on a p.r.n. basis. D/C doxazosin . If he has urinary retention, it may be due to opiates plus methocarbamol and the symptom may resolve when opiates can be tapered. Scan with 350cc today, will CTM Possible SNF discharge; appropriate until weightbearing can be advanced; delayed for PASSAR and re availability of Medicaid bed. Subjective: No acute events. complains of persistent 7-9/10 pain despite maxing out prns. denies N/V/chills/dysuria. Objective: Vital Signs Temp Pulse Resp BP Pulse Ox 36.6 C 69 17 96/69 L 90 L 11/03/16 08:00 11/02/16 20:00 11/02/16 20:00 11/02/16 20:00 11/02/16 20:00 Laboratory Results 10/25/16 05:15 10/25/16 05:15 11/02/16 11/03/16 11/04/16 05:59 05:59 05:59 Intake Total 1440 2190 972 Balance 1440 2190 972 - Pending Discharge Pending Discharge Within 24 Hours: No Pending Discharge Within 48 Hours: No Physical Exam - Physical Exam General Appearance: alert, no apparent distress Neck: supple Respiratory: lungs clear, normal breath sounds Cardiac/Chest: regular rate, rhythm Abdomen: non-tender, soft Neuro/Psych: alert, oriented x 3, other (easily agitated, irritable) ICD10 Worksheet Patient Problems: Problems Problem Status Diagnosed Multiple trauma Acute TBI (traumatic brain injury) Acute
[2016-11-03] MEDS: QUEtiapine FUMARATE 50 MG TAB PO SCH (20:11)
[2016-11-03] MEDS: GABAPENTIN 300 MG CAP PO SCH (20:11)
[2016-11-03] MEDS: PATCH REMOVAL 1 EA PATCH TD SCH (21:00)
[2016-11-04] MEDS: ACETAMINOPHEN 500 MG TAB PO SCH ×3 (06:05→21:14)
[2016-11-04] MEDS: morphINE SR 15 MG TAB PO SCH ×4 (06:05→21:16)
[2016-11-04] MEDS: LIDOCAINE 5% 1 EA PATCH TD SCH (07:53)
[2016-11-04] MEDS: ENOXAPARIN 40 MG/0.4 ML SYR SC SCH (07:58)
[2016-11-04] MEDS: VENLAFAXINE XR 37.5 MG CAP PO SCH (07:59)
[2016-11-04] MEDS: AQUAPHOR OINTMENT 3.5 OZ JAR TP SCH ×2 (07:59→22:33)
[2016-11-04] MEDS: POLYETHYLENE GLYCOL 3350 17 GM PKT PO SCH ×2 (07:59→21:14)
[2016-11-04] MEDS: SENNOSIDES 1 TAB PO PRN (07:59)
[2016-11-04] MEDS: oxyCODONE IR 5 MG TAB PO PRN ×4 (08:00→19:17)
--- NOTE | 2016-11-04 08:20 | SOAPPROG ---
SOAP Progress Note Assessment/Plan: 45 yo M with TBI/multitruama and mult psychiatric comorbidities NOS. * Debility status post multiple trauma, nonweightbearing on the left upper extremity and touchdown weightbearing on the right lower extremity. Initial FIM 84 on 10/26/16; increase to 91 as of 10/31/16. Not complying with TTWB restrictions adequately to work on ambulation. Continue Physical and Occupational Therapy to optimize his mobility and performance of activities of daily living. TT[facility] clarified with Dr. Leija, Orthopedics: may not use RLE to self-propel wheelchair. 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 Decreased attn. exec fn, working memory, organization. Continue Speech and Language Pathology. Low stimulation environment; monitor hours of sleep. * Pain from multiple orthopedic injuries. Started sustained-release morphine at 30 mg p.o. b.i.d. on 10/24/16 and continued oxycodone 10-15 mg q.4 hours p.r.n. Increased morphine SR to 30 mg Q 8 hr 10/25/16. Added ibuprofen 600 mg Q 6 hr starting 10/26/16, and pantoprazole for GI protection; change to celecoxib 11/01/16 for longer duration of action; will also d/c pantoprazole. Taper gabapentin starting 10/31/16 as neuropathic symptoms of tingling in toes are not bothersome; D/C 11/01/16. Ongoing pain complaints at least partly due to noncompliance with weight bearing restrictions, increased lido patch to 2q daily and reinstitute gabapentin 300qhs as pain adjunct and for anxiety 11/03, ongoing "severe" pain will increase Morphine SR by total 30meq daily (45-30-45) today * Status post flail chest, pneumonia, and pulmonary edema. Incentive spirometry 10 breaths every hour. * Status post splenectomy. Per hospital discharge summary, he received appropriate vaccinations. * Thrombocytosis: likely due to splenectomy. * Left foot pain, XR w/out fracture, seems resolved. * Pedal edema. Due to ibuprofen and gabapentin? No renal or hepatic insufficiency on labs 10/25/16. No S/Sx DVT or PE. Taper gabapentin as above and improving; d/c gabapentin 11/01/16. Continue to monitor. * History of anxiety. Continue venlafaxine and quetiapine as ordered out of the hospital. Psychiatry consult to clarify diagnosis (historically diagnosed schizoaffective and possibly bipolar; polysubstance abuse overlay). * H/O substance abuse: caution re opiate dosing. * Anemia, post traumatic and postsurgical. Improving on CBC 10/25/16. * Constipation on opiates. Responding to bowel program. * He is a high risk for deep venous thrombosis. Continue enoxaparin as ordered out of the hospital. * Questionable history of urinary retention. He had some vagueness in terms of describing this. Will order bladder scans on a p.r.n. basis. D/C doxazosin . If he has urinary retention, it may be due to opiates plus methocarbamol and the symptom may resolve when opiates can be tapered. Scans resolved and <150cc Possible SNF discharge; appropriate until weightbearing can be advanced; delayed for PASSAR and re availability of Medicaid bed. Subjective: no acute events. reports severe pain that he feels is not being addressed by current medications. Notes that it is constant and only partly improved with current regiment. denies constipation or dysuria. Objective: Vital Signs Temp Pulse Resp BP Pulse Ox 36.7 C 86 14 115/80 95 11/04/16 06:27 11/04/16 06:27 11/04/16 06:27 11/04/16 06:27 11/04/16 06:27 Laboratory Results 10/25/16 05:15 10/25/16 05:15 11/03/16 11/04/16 11/05/16 05:59 05:59 05:59 Intake Total 2190 1208 120 Output Total 2825 Balance 2190 -1617 120 - Pending Discharge Pending Discharge Within 24 Hours: No Pending Discharge Within 48 Hours: No Physical Exam - Physical Exam General Appearance: alert, no apparent distress Neck: full range of motion, supple Respiratory: decreased breath sounds (left ll), No chest non-tender Cardiac/Chest: regular rate, rhythm Abdomen: non-tender, soft Skin: normal color, warm/dry Extremities: No pedal edema Neuro/Psych: alert, oriented x 3, No speech abnormalities ICD10 Worksheet Patient Problems: Problems Problem Status Diagnosed Multiple trauma Acute TBI (traumatic brain injury) Acute
[2016-11-04] MEDS: LORazepam 1 MG TAB PO PRN (12:39)
[2016-11-04] MEDS: PATCH REMOVAL 1 EA PATCH TD SCH (21:03)
[2016-11-04] MEDS: GABAPENTIN 300 MG CAP PO SCH (21:05)
[2016-11-04] MEDS: QUEtiapine FUMARATE 50 MG TAB PO SCH (21:05)
[2016-11-05] MEDS: morphINE SR 15 MG TAB PO SCH ×3 (06:04→21:01)
[2016-11-05] MEDS: ACETAMINOPHEN 500 MG TAB PO SCH ×3 (06:05→21:00)
[2016-11-05] MEDS: ENOXAPARIN 40 MG/0.4 ML SYR SC SCH (09:34)
[2016-11-05] MEDS: AQUAPHOR OINTMENT 3.5 OZ JAR TP SCH ×2 (09:35→21:03)
[2016-11-05] MEDS: oxyCODONE IR 5 MG TAB PO PRN ×3 (09:35→23:58)
[2016-11-05] MEDS: POLYETHYLENE GLYCOL 3350 17 GM PKT PO SCH ×2 (09:35→20:16)
[2016-11-05] MEDS: VENLAFAXINE XR 37.5 MG CAP PO SCH (09:35)
[2016-11-05] MEDS: LIDOCAINE 5% 1 EA PATCH TD SCH (09:47)
[2016-11-05] MEDS: SENNOSIDES 1 TAB PO PRN (09:49)
--- NOTE | 2016-11-05 15:06 | SOAPPROG ---
SOAP Progress Note Assessment/Plan: Assessment: * Debility status post multiple trauma, nonweightbearing on the left upper extremity and touchdown weightbearing on the right lower extremity. Initial FIM 84 on 10/26/16; increase to 91 as of 10/31/16. Not complying with TTWB restrictions adequately to work on ambulation. Continue Physical and Occupational Therapy to optimize his mobility and performance of activities of daily living. [facility] clarified with Dr. Leija, Orthopedics: may not use RLE to self-propel wheelchair. 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 Decreased attn. exec fn, working memory, organization. Continue Speech and Language Pathology. Low stimulation environment; monitor hours of sleep. * Pain from multiple orthopedic injuries. Started sustained-release morphine at 30 mg p.o. b.i.d. on 10/24/16 and continued oxycodone 10-15 mg q.4 hours p.r.n. Increased morphine SR to 30 mg Q 8 hr 10/25/16. Increased 11/04/15 to 45 mg QAM & PM with 30 mg mid-day, and Added ibuprofen 600 mg Q 6 hr starting , and pantoprazole for GI protection; change to celecoxib 11/01/16 for longer duration of action; will also d/c pantoprazole. Taper gabapentin starting as neuropathic symptoms of tingling in toes are not bothersome; D/C 11/01/16. Restarted at [facility] 11/03/16. Continue the lidocaine patch until he is assessed to have adequate pain control. He expressed some concern about addiction, and he was reassured that as long as the opiates are used to manage pain it is unlikely that he will become addicted, though his prior history of substance abuse increases his risk. * Status post flail chest, pneumonia, and pulmonary edema. Incentive spirometry 10 breaths every hour. * Status post splenectomy. Per hospital discharge summary, he received appropriate vaccinations. * Thrombocytosis: likely due to splenectomy. * Left foot pain, XR w/out fracture, seems resolved. * Pedal edema. Due to ibuprofen and gabapentin? No renal or hepatic insufficiency on labs 10/25/16. No S/Sx DVT or PE. Taper gabapentin as above and improving; d/c gabapentin 11/01/16. Observe for recurrence restarting gabapentin. Continue to monitor. * History of anxiety. Continue venlafaxine and quetiapine as ordered out of the hospital. Psychiatry consult to clarify diagnosis (historically diagnosed schizoaffective and possibly bipolar; polysubstance abuse overlay). * H/O substance abuse: caution re opiate dosing. * Anemia, post traumatic and postsurgical. Improving on CBC 10/25/16. * Constipation on opiates. Responding to bowel program. * He is a high risk for deep venous thrombosis. Continue enoxaparin as ordered out of the hospital. * Questionable history of urinary retention. He had some vagueness in terms of describing this. Will order bladder scans on a p.r.n. basis. D/C doxazosin . If he has urinary retention, it may be due to opiates plus methocarbamol and the symptom may resolve when opiates can be tapered. PASSAR is done. Awaiting availability of Medicaid bed. 11/05/16 15:01 Subjective: Gabapentin started at [facility] and morphine SR increased yesterday. Slept better. Objective: Vital Signs Temp Pulse Resp BP Pulse Ox 36.9 C 66 17 101/63 90 L 11/05/16 07:02 11/05/16 07:02 11/05/16 07:02 11/05/16 07:02 11/05/16 07:02 Laboratory Results 10/25/16 05:15 10/25/16 05:15 11/04/16 11/05/16 11/06/16 05:59 05:59 05:59 Intake Total 1208 3364 1478 Output Total 2825 3200 Balance -5158 763 9385 Physical Exam - Physical Exam General Appearance: WD/WN, alert, no apparent distress Respiratory: No respiratory distress, No accessory muscle use Skin: normal color, warm/dry Neuro/Psych: alert, normal mood/affect, oriented x 3 ICD10 Worksheet Patient Problems: Problems Problem Status Diagnosed Multiple trauma Acute TBI (traumatic brain injury) Acute
[2016-11-05] MEDS: LORazepam 1 MG TAB PO PRN (19:49)
[2016-11-05] MEDS: GABAPENTIN 300 MG CAP PO SCH (20:16)
[2016-11-05] MEDS: QUEtiapine FUMARATE 50 MG TAB PO SCH (21:43)
[2016-11-05] MEDS: PATCH REMOVAL 1 EA PATCH TD SCH (22:32)
[2016-11-06] MEDS: ACETAMINOPHEN 500 MG TAB PO SCH ×3 (07:19→20:32)
[2016-11-06] MEDS: morphINE SR 15 MG TAB PO SCH ×3 (07:19→20:33)
[2016-11-06] MEDS: oxyCODONE IR 5 MG TAB PO PRN ×3 (07:23→19:30)
[2016-11-06] MEDS: ENOXAPARIN 40 MG/0.4 ML SYR SC SCH (08:53)
[2016-11-06] MEDS: AQUAPHOR OINTMENT 3.5 OZ JAR TP SCH ×2 (08:54→20:33)
[2016-11-06] MEDS: POLYETHYLENE GLYCOL 3350 17 GM PKT PO SCH ×2 (08:54→20:29)
[2016-11-06] MEDS: VENLAFAXINE XR 37.5 MG CAP PO SCH (08:54)
[2016-11-06] MEDS: LIDOCAINE 5% 1 EA PATCH TD SCH (08:54)
--- NOTE | 2016-11-06 16:13 | SOAPPROG ---
SOAP Progress Note Assessment/Plan: Assessment: * Debility status post multiple trauma, nonweightbearing on the left upper extremity and touchdown weightbearing on the right lower extremity. Initial FIM 84 on 10/26/16; increase to 91 as of 10/31/16. Not complying with TTWB restrictions adequately to work on ambulation. Continue Physical and Occupational Therapy to optimize his mobility and performance of activities of daily living. [facility] clarified with Dr. Leija, Orthopedics: may not use RLE to self-propel wheelchair. 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 Decreased attn. exec fn, working memory, organization. Continue Speech and Language Pathology. Low stimulation environment; monitor hours of sleep. * Pain from multiple orthopedic injuries. Started sustained-release morphine at 30 mg p.o. b.i.d. on 10/24/16 and continued oxycodone 10-15 mg q.4 hours p.r.n. Increased morphine SR to 30 mg Q 8 hr 10/25/16. Increased 11/04/15 to 45 mg QAM & PM with 30 mg mid-day, and Added ibuprofen 600 mg Q 6 hr starting , and pantoprazole for GI protection; change to celecoxib 11/01/16 for longer duration of action; will also d/c pantoprazole. Taper gabapentin starting as neuropathic symptoms of tingling in toes are not bothersome; D/C 11/01/16. Restarted at [facility] 11/03/16. Continue the lidocaine patch until he is assessed to have adequate pain control. He expressed some concern about addiction, and he was reassured that as long as the opiates are used to manage pain it is unlikely that he will become addicted, though his prior history of substance abuse increases his risk. * Status post flail chest, pneumonia, and pulmonary edema. Incentive spirometry 10 breaths every hour. * Status post splenectomy. Per hospital discharge summary, he received appropriate vaccinations. * Thrombocytosis: likely due to splenectomy. * Left foot pain, XR w/out fracture, seems resolved. * Pedal edema. Due to ibuprofen and gabapentin? No renal or hepatic insufficiency on labs 10/25/16. No S/Sx DVT or PE. Taper gabapentin as above and improving; d/c gabapentin 11/01/16. Observe for recurrence restarting gabapentin. Continue to monitor. * History of anxiety. Continue venlafaxine and quetiapine as ordered out of the hospital. Psychiatry consult to clarify diagnosis (historically diagnosed schizoaffective and possibly bipolar; polysubstance abuse overlay). * H/O substance abuse: caution re opiate dosing. * Anemia, post traumatic and postsurgical. Improving on CBC 10/25/16. * Constipation on opiates. Responding to bowel program. * He is a high risk for deep venous thrombosis. Continue enoxaparin as ordered out of the hospital. * Questionable history of urinary retention. He had some vagueness in terms of describing this. Will order bladder scans on a p.r.n. basis. D/C doxazosin . If he has urinary retention, it may be due to opiates plus methocarbamol and the symptom may resolve when opiates can be tapered. PASSAR is done. Awaiting availability of Medicaid bed. Discharge tomorrow 11/07/16 to [facility]. 11/06/16 16:12 Subjective: No complaints. Pain adequately controlled. He thinks the lidocaine patch seems to help his shoulder. Objective: Vital Signs Temp Pulse Resp BP Pulse Ox 36.3 C 90 14 101/68 92 11/06/16 08:00 11/06/16 08:00 11/06/16 08:00 11/06/16 08:00 11/06/16 08:00 Laboratory Results 10/25/16 05:15 10/25/16 05:15 11/05/16 11/06/16 11/07/16 05:59 05:59 05:59 Intake Total 3364 2278 1160 Output Total 3200 Balance 164 2278 1160 Physical Exam - Physical Exam General Appearance: WD/WN, alert, no apparent distress Respiratory: No respiratory distress, No accessory muscle use Skin: normal color, warm/dry Neuro/Psych: alert, normal mood/affect, oriented x 3 ICD10 Worksheet Patient Problems: Problems Problem Status Diagnosed Multiple trauma Acute TBI (traumatic brain injury) Acute
[2016-11-06] MEDS: GABAPENTIN 300 MG CAP PO SCH (20:32)
[2016-11-06] MEDS: QUEtiapine FUMARATE 50 MG TAB PO SCH (20:32)
[2016-11-06] MEDS: PATCH REMOVAL 1 EA PATCH TD SCH (20:33)
[2016-11-07] MEDS: oxyCODONE IR 5 MG TAB PO PRN ×3 (00:11→08:03)
[2016-11-07] MEDS: LORazepam 1 MG TAB PO PRN (02:03)
[2016-11-07 05:03] VITALS: BP 110/73; PULSE 77; RESP 16; TEMP 98.5; O2SAT 92
[2016-11-07] MEDS: morphINE SR 15 MG TAB PO SCH (05:27)
[2016-11-07] MEDS: ACETAMINOPHEN 500 MG TAB PO SCH (05:27)
[2016-11-07] MEDS: VENLAFAXINE XR 37.5 MG CAP PO SCH (08:03)
[2016-11-07] MEDS: POLYETHYLENE GLYCOL 3350 17 GM PKT PO SCH (08:04)
[2016-11-07] MEDS: ENOXAPARIN 40 MG/0.4 ML SYR SC SCH (08:04)
[2016-11-07] MEDS: LIDOCAINE 5% 1 EA PATCH TD SCH (08:05)
[2016-11-07] MEDS: AQUAPHOR OINTMENT 3.5 OZ JAR TP SCH (11:56)
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
== END 2016-11-07 12:05 | DRG 946 ==
LOC: BREH 10-24 14:21
PROVIDERS: ADMIT Internal Medicine; ATTEND Internal Medicine
PROC: F0636ZZ Communicative/Cognitive Integration Skills Treatment of Neurological System - Whole Body (ICD-10-PCS; principal; 2016-10-24)
PROC: F07M3ZZ Motor Function Treatment of Musculoskeletal System - Whole Body (ICD-10-PCS; principal; 2016-10-24)
PROC: F08Z7ZZ Vocational Activities and Functional Community or Work Reintegration Skills Treatment (ICD-10-PCS; principal; 2016-10-24)
DX: S06.359D Traumatic hemorrhage of left cerebrum with loss of consciousness of unspecified duration, subsequent encounter (principal); S42.002D Fracture of unspecified part of left clavicle, subsequent encounter for fracture with routine healing; S22.5XXD Flail chest, subsequent encounter for fracture with routine healing; S32.119D Unspecified Zone I fracture of sacrum, subsequent encounter for fracture with routine healing; S32.501D Unspecified fracture of right pubis, subsequent encounter for fracture with routine healing; S22.049D Unspecified fracture of fourth thoracic vertebra, subsequent encounter for fracture with routine healing; Z90.81 Acquired absence of spleen; F09 Unspecified mental disorder due to known physiological condition; D64.9 Anemia, unspecified; Z87.01 Personal history of pneumonia (recurrent); Z87.891 Personal history of nicotine dependence; K59.03 Drug induced constipation; R53.81 Other malaise; T40.605A Adverse effect of unspecified narcotics, initial encounter; V49.40XD Driver injured in collision with unspecified motor vehicles in traffic accident, subsequent encounter; M79.605 Pain in left leg; R60.0 Localized edema
CPT/HCPCS: 92507-GN; 92522-GN; 97110-GP; 97116-GP; 97162-GP; 97166-GO; 97530-GO; 97530-GP; 97532-GO; 97535-GO; 97542-GP; J1650